=== PATIENT | female | born 1975 | race African-American/Black ===

== ENCOUNTER 2017-06-05 12:24 | Emergency (ER) | payer OTHER, SELFPAY ==
[2017-06-05 13:12] LABS: Bilirubin Small (Negative); Blood, Urine Negative (Negative); Glucose, Urine (Dipstick) Negative (Negative); Ketone, Urine Negative (Negative); Nitrite Negative (Negative); Protein, Urine (Dipstick) Trace mg/dL (Neg-Trace); Urobilinogen 0.2 mg/dL (0.2-1.0)
[2017-06-05 14:54] LABS: Hematocrit 35.7 % (36.0-47.0); Mean Platelet Volume 8.6 fL (7.4-10.4); Red Blood Cell (RBC) Count 5.27 mill/uL (4.20-5.40); White Blood Cell (WBC) Count 8.9 thou/uL (4.8-10.8)
[2017-06-05 15:03] LABS: ALT (SGPT) 11 U/L (8-55); AST (SGOT) 14 U/L (5-34); Alkaline Phosphatase 48 U/L (40-150); Anion Gap 11 mmol/L (10-20); BUN (Urea Nitrogen) 10 mg/dL (7.0-18.7); Bilirubin, Total 0.3 mg/dL (0.2-1.2); Calc. Creatinine Clearance 0 mL/min (70-130); Calcium 9.3 mg/dL (7.8-10.44); Carbon Dioxide 27 mmol/L (22-29); Chloride 104 mmol/L (98-107); Estimated GFR-MDRD 82; Globulin 4.2 g/dL (2.4-3.5); Lipase 15 U/L (8-78); Protein, Total 8.3 g/dL (6.0-8.3)
[2017-06-05] MEDS ORDERED: diphenhydrAMINE 50 MG/ML VIAL ONE (15:17)
[2017-06-05] MEDS ORDERED: methylPREDNISolone Sod Succ/PF 125 MG/2 ML VIAL ONE (15:17)
[2017-06-05] MEDS ORDERED: Water For Inject, Bacteriostat 30 ML ONE (15:17)
[2017-06-05 15:18] LABS: #Basophils 0.1 thou/uL (0.0-0.2); #Eosinphils 0.1 thou/uL (0.0-0.7); #Lymphocytes 2.7 thou/uL (1.20-3.40); #Monocytes 0.7 thou/uL (0.11-0.59); #Neutrophils 5.3 thou/uL (1.40-6.50); %Eosinophils 1.4 % (0.0-10.0); %Lymphocytes 30.4 % (21.0-51.0); %Monocytes 7.7 % (0.0-10.0); Anisocytosis SLIGHT = 6-15 cells (100X) (0-5/hpf); Hypochromia SLIGHT = 6-15 cells (100X) (0-5/hpf); Polychromasia SLIGHT = 2-3 cells (100X) (0-2/hpf)
--- NOTE | 2017-06-05 16:52 | CT ---
CT OF THE ABDOMEN AND PELVIS WITH CONTRAST: Date: 06/05/17 COMPARISON: None. HISTORY: Lower abdominal pain and bright red blood per rectum. Left lower quadrant abdominal pain. TECHNIQUE: Multiple contiguous axial images were obtained in a CT of the abdomen and pelvis with contrast. Coron al reformats were performed. FINDINGS: The liver, gallbladder, kidneys, adrenal glands, spleen, and pancreas are unremarkable. There is apparent thickening of the left colon with subtle surrounding stranding changes. This could be secondary to focal colitis of the left colon. The transverse colon and right colon are unremarkabl e. No free air or free fluid seen in the abdomen or pelvis. The reproductive organs are unremarkable. No abdominal or pelvic lymphadenopathy are seen. The osseous structures, visualized inferior thorax, and abdominal wall soft tissues are unremarkable. IMPRESSION: Thickening of the left colon with surrounding stranding changes secondary to an infectious or inflamm atory colitis. Less likely, this could represent ischemic colitis. POS: YAS
[2017-06-05] MEDS ORDERED: ISOVUE-370 76%-LOCM 1 ML ONE (17:21)
== END 2017-06-05 19:01 | disposition home or self-care (01) ==
LOC: ERS 12:24
DX: K52.9 Noninfective gastroenteritis and colitis, unspecified (principal)
CPT/HCPCS: 36415; 74177; 80053; 81003; 82274; 83690; 84703; 85025; 96374; 96375; J1200; J2930